=== PATIENT | female | born 1975 | race Caucasian/White ===

== ENCOUNTER 2016-12-31 08:28 | Outpatient (CLI) | payer OTHER ==
[2013-03-21 14:09] VITALS: BP 138/68
== END 2016-12-31 08:30 ==
LOC: OUT 08:28
PROVIDERS: ATTEND Nurse Practitioner Family
DX: K31.84 Gastroparesis (principal)
CPT/HCPCS: G0271

== ENCOUNTER 2017-10-28 10:50 | Outpatient (CLI) | payer OTHER ==
[2013-03-21 14:09] VITALS: BP 138/68
[2017-10-28 11:08] LABS: MEAN CORPUSCULAR HEMOGLOBIN 26.2 pg (28.0-34.0); MEAN CORPUSCULAR VOLUME 84.6 fl (80.0-100.0)
[2017-10-28 11:38] LABS: eGFR (African) > 60; eGFR (Non-African) > 60
== END 2017-10-28 11:43 ==
LOC: LAB 10:50
PROVIDERS: ATTEND Podiatrist
DX: L60.0 Ingrowing nail (principal); M79.671 Pain in right foot; M79.672 Pain in left foot; Z01.810 Encounter for preprocedural cardiovascular examination
CPT/HCPCS: 36415; 80048; 85027